=== PATIENT | female | born 1975 | race Caucasian/White ===

== ENCOUNTER 2019-08-25 07:59 | Day surgery (SDC) | payer BC ==
[2019-08-23 12:00] LABS: BASOPHIL % 0.3 % (0-2); PLATELET COUNT 269 x10^3mcL (130-400)
[2019-08-23 12:05] LABS: RED CELL DISTRIBUTION WIDTH 14.9 % (11.5-14.5)
[2019-08-23 12:13] LABS: ALBUMIN 3.6 g/dL (3.4-5.0); ALKALINE PHOSPHATASE 56 U/L (46-116); ALT/SGPT 20 U/L (14-59); AST/SGOT 12 U/L (15-37); BILIRUBIN TOTAL 0.2 mg/dL (0.20-1.00); CALCIUM 8.9 mg/dL (8.5-10.1); CARBON DIOXIDE 26.8 mmol/L (21-32); CHLORIDE SERUM 106 mmol/L (98-107); CREATININE SERUM 0.5 mg/dL (0.6-1.0); GFR1 > 60 mL/min; GLUCOSE SERUM 83 mg/dL (74-106); POTASSIUM SERUM 4.4 mmol/L (3.5-5.1); SODIUM SERUM 141 mmol/L (136-145); TOTAL PROTEIN, SERUM 7.2 g/dL (6.4-8.2)
[~2019-08-25] VITALS: Ht 160 cm; Wt 87.1 kg
[2019-08-25 08:10] VITALS: BP 109/66
[2019-08-25 16:58] VITALS: BP 102/70
== END 2019-08-25 16:40 | disposition home or self-care (01) ==
LOC: DS 07:59 → MA 09:00 → OR 13:00 → DS 16:40
PROVIDERS: Surgery
DX: N63.13 Unspecified lump in the right breast, lower outer quadrant (principal); N60.31 Fibrosclerosis of right breast; D64.9 Anemia, unspecified; N60.81 Other benign mammary dysplasias of right breast; E66.3 Overweight; Z68.33 Body mass index [BMI] 33.0-33.9, adult; Z79.899 Other long term (current) drug therapy; Z98.891 History of uterine scar from previous surgery; Z98.890 Other specified postprocedural states
CPT/HCPCS: J0690; J1170; J2001; J2250; J2405; J2704; J3010; J3490; J7120